=== PATIENT | female | born 1990 | race Caucasian/White ===

== ENCOUNTER 2018-09-14 14:03 | Emergency (ER) | payer MEDICAID ==
[~2018-09-14] VITALS: Ht 170.2 cm; Wt 100.3 kg
[2018-09-14 14:08] VITALS: BP 154/92
--- NOTE | 2018-09-14 14:36 | NUR ---
PATIENT AMBULATED TO BED 3 AT THIS TIME.
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
[2018-09-14 17:20] VITALS: BP 150/80
--- NOTE | 2018-09-14 17:20 | NUR ---
VERBAL ORDER GIVEN BY DR. LINN FOR A RIGHT WRIST VOLAR SPLINT. SPLINT APPLIED USING A ORHTO GLASS NUMBER 4 AND AN NIXON WRAP NUMBER 3. PMSCs INTACT BEFORE AND AFTER APPLICATION.
--- NOTE | 2018-09-14 17:20 | NUR ---
Patient discharged with v/s stable. Written and verbal after care instructions given and explained. Patient alert, oriented and verbalized understanding of instructions. Ambulatory with steady gait. All questions addressed prior to discharge. ID band removed. Patient advised to follow up with PMD. Rx of NORCO AND IBUPROFEN given. Patient educated on indication of medication including possible reaction and side effects. Opportunity to ask questions provided and answered.
== END 2018-09-14 17:20 | disposition home or self-care (01) ==
LOC: MED 14:03
DX: S52.501A Unspecified fracture of the lower end of right radius, initial encounter for closed fracture (principal); Z88.0 Allergy status to penicillin; V43.52XA Car driver injured in collision with other type car in traffic accident, initial encounter; Y93.89 Activity, other specified; Y92.410 Unspecified street and highway as the place of occurrence of the external cause; Y99.8 Other external cause status
CPT/HCPCS: 73060; 73090; 99283

== ENCOUNTER 2019-01-24 19:14 | Emergency (ER) | payer MEDICAID ==
[~2019-01-24] VITALS: Ht 170.2 cm; Wt 88.9 kg
[2019-01-24 19:19] VITALS: BP 135/105
--- NOTE | 2019-01-24 19:26 | NUR ---
PT AMBULATED TO BED 11
--- NOTE | 2019-01-24 19:37 | NUR ---
PATIENT PRESENTS TO ED WITH N/V/D [id number] WITH EPIGASTRIC PAIN, WORSENING THIS WEEK. APPETTIE CHANGES, UNABLE TO KEEP FOOD DOWN, SKIN IS PINK/WARM/DRY; AAOX4 WITH EVEN AND STEADY GAIT; LUNGS CLEAR BL; HR EVEN AND REGULAR; PT DENIES ANY FEVER, CP, SOB, OR COUGH AT THIS TIME; PATIENT STATES PAIN OF 2/10 AT THIS TIME; VSS; PATIENT POSITIONED FOR COMFORT; HOB ELEVATED; BEDRAILS UP X2; BED DOWN. ER MD MADE AWARE OF PT STATUS.
[2019-01-24] MEDS ORDERED: ONDANSETRON 4 MG ODT PO ONE (20:00)
--- NOTE | 2019-01-24 22:42 | NUR ---
Patient discharged with v/s stable. Written and verbal after care instructions given and explained. Patient alert, oriented and verbalized understanding of instructions. Ambulatory with steady gait. All questions addressed prior to discharge. ID band removed. Patient advised to follow up with PMD. Rx of miralax and moineral oil given. Patient educated on indication of medication including possible reaction and side effects. Opportunity to ask questions provided and answered.
[2019-01-24 22:43] VITALS: BP 118/68
== END 2019-01-24 22:41 | disposition home or self-care (01) ==
LOC: MED 19:14
DX: R10.9 Unspecified abdominal pain (principal); R11.10 Vomiting, unspecified; Z88.0 Allergy status to penicillin
CPT/HCPCS: 74022; 81002; 81025; 99283; Q0162

== ENCOUNTER 2019-01-26 15:34 | Emergency (ER) | payer MEDICAID ==
[~2019-01-26] VITALS: Ht 177.8 cm; Wt 87.1 kg
[2019-01-26 15:38] VITALS: BP 132/96
--- NOTE | 2019-01-26 15:44 | NUR ---
PT TO WAIT IN ER LOBBY. VSS. AA0X4. NOT ACTIVELY VOMITING.
--- NOTE | 2019-01-26 20:14 | NUR ---
PT AMBULATED TO BED 11.
--- NOTE | 2019-01-26 20:15 | NUR ---
28 Y/O FEMALE, PRESENTS TO ED C/O EPIGASTRIC BURNING SENSATION. PT STATES SHE HAS BEEN GETTING N/V X3 MONTHS 5 EPISODES A DAY. UNABLE TO TOLERATE FOOD OR FLUID. STATES SHE FEELS BURNING SENSATION WHEN SHE SWALLOWS. PT DENIES ANY SOB. ABDOMEN SOFT AND TENDER TO TOUCH. ACTIVE BS ON ALL QUADRANTS. PT VSS. ERMD AWARE. WILL CONTINUE TO MONITOR.
[2019-01-26] MEDS ORDERED: NACL 0.9% 1,000 ML IV ONE ×2 (21:10→23:40)
[2019-01-26] MEDS ORDERED: FAMOTIDINE 20 MG/2 ML VIAL IVP ONE (21:10)
[2019-01-26] MEDS ORDERED: ONDANSETRON 4 MG/2 ML VIAL IVP ONE (21:10)
--- NOTE | 2019-01-26 21:20 | NUR ---
LABS DRAWN BY RN AT BEDSIDE AND COLLECTED BY PHLEB.
[2019-01-26 22:00] LABS: BASOPHILS # (AUTO) 0.1 K/uL (0.00-0.22); BASOPHILS % (AUTO) 0.6 % (0.0-2.0); EOSINOPHILS % (AUTO) 0.1 % (0.0-4.0); HEMATOCRIT 47.3 % (36-48); HEMOGLOBIN 16.5 g/dL (12.0-16.0); LYMPHOCYTES # (AUTO) 1.2 K/uL (2.5-16.5); LYMPHOCYTES % (AUTO) 10.6 % (20.5-51.1); MEAN CORPUSCULAR HEMOGLOBIN 32 pg (27-31); MEAN CORPUSCULAR HGB CONC 35 g/dL (33-37); MEAN CORPUSCULAR VOLUME 90.8 fL (80-94); MONOCYTES # (AUTO) 0.8 K/uL (0.8-1.0); MONOCYTES % (AUTO) 7.7 % (1.7-9.3); NEUTROPHILS # (AUTO) 8.9 K/uL (1.8-7.7); PLATELET COUNT (AUTO) 411 K/uL (140-450); RED BLOOD CELL COUNT(AUTO) 5.22 MIL/uL (4.20-5.40); RED CELL DISTRIBUTION WIDTH 13.5 % (11.6-13.7)
[2019-01-26 22:18] LABS: ALBUMIN 4.9 g/dL (3.4-5.0); ANION GAP 22.7 (8-16); CARBON DIOXIDE 27.2 mmol/L (21-32); CREATININE 1.6 mg/dL (0.6-1.3)
[2019-01-26 22:23] LABS: POTASSIUM 2.9 mmol/L (3.5-5.1)
--- NOTE | 2019-01-26 22:40 | NUR ---
PT TAKEN TO CT VIA WC.
--- NOTE | 2019-01-26 22:52 | NUR ---
PT RETURNED FROM CT.
[2019-01-26] MEDS ORDERED: POTASSIUM CHLORIDE 20% 40 MEQ/15 ML UDC PO ONE (23:40)
[2019-01-26] MEDS ORDERED: KETOROLAC 15 MG/ML VIAL IVP ONE (23:45)
[2019-01-27 00:49] VITALS: BP 116/80
--- NOTE | 2019-01-27 00:49 | NUR ---
PT DISCHARGED WITH PAPERWORK. RX KEILA REARDON. EDUCATED PT REGARDING MEDICATIONS AND S/E. EDUCATED PT REGARDING D/C DIAGNOSIS. PT VERBALIZED UNDERSTANDING OF TEACHING. TOLD PT TO FOLLOW UP WITH PCP AND WHEN TO RETURN TO ED. PT VSS. ALL QUESTIONS ANSWERED.
[2019-01-27] MEDS ORDERED: ONDANSETRON 4 MG ODT PO ONE (00:50)
[2019-01-28 09:06] LABS: HEPATITIS A ANTIBODY IGM Negative (Negative)
== END 2019-01-27 00:49 | disposition home or self-care (01) ==
LOC: MED 15:34
DX: R11.2 Nausea with vomiting, unspecified (principal); R19.7 Diarrhea, unspecified; Z88.0 Allergy status to penicillin
CPT/HCPCS: 36415; 74177; 80053; 81025; 83690; 85025; 86708; 86709; 96361; 96374; 96375; 99284; J1885; J2405; J3490; J7030; Q0162; Q9967

== ENCOUNTER 2019-02-04 19:53 | Inpatient (IN) | payer MEDICAID ==
[~2019-02-04] VITALS: Ht 170.2 cm; Wt 83.5 kg
[2019-02-04 19:55] VITALS: BP 115/87
--- NOTE | 2019-02-04 20:05 | NUR ---
PT AMBULTAED TO BED 11.
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
[2019-02-04] MEDS ORDERED: ONDANSETRON 4 MG/2 ML VIAL IVP ONE (20:10)
[2019-02-04] MEDS ORDERED: MORPHINE SULFATE 4 MG/ML SYR IVP ONE (20:10)
[2019-02-04] MEDS ORDERED: NACL 0.9% 1,000 ML IV ONE ×3 (20:10→21:45)
[2019-02-04 20:37] LABS: BASOPHILS # (AUTO) 0.1 K/uL (0.00-0.22); LYMPHOCYTES # (AUTO) 2.3 K/uL (2.5-16.5)
[2019-02-04 20:45] LABS: BASOPHILS % (AUTO) 0.8 % (0.0-2.0); EOSINOPHILS # (AUTO) 0.1 K/uL (0-0.4); EOSINOPHILS % (AUTO) 0.3 % (0.0-4.0); HEMATOCRIT 48.7 % (36-48); HEMOGLOBIN 16.7 g/dL (12.0-16.0); LYMPHOCYTES % (AUTO) 13.9 % (20.5-51.1); MEAN CORPUSCULAR HEMOGLOBIN 30 pg (27-31); MEAN CORPUSCULAR HGB CONC 34 g/dL (33-37); MEAN CORPUSCULAR VOLUME 88.7 fL (80-94); MONOCYTES # (AUTO) 1.4 K/uL (0.8-1.0); MONOCYTES % (AUTO) 8.4 % (1.7-9.3); NEUTROPHILS # (AUTO) 12.6 K/uL (1.8-7.7); NEUTROPHILS % (AUTO) 76.6 % (42.2-75.2); PLATELET COUNT (AUTO) 602 K/uL (140-450); RED BLOOD CELL COUNT(AUTO) 5.49 MIL/uL (4.20-5.40); RED CELL DISTRIBUTION WIDTH 13.2 % (11.6-13.7); WHITE BLOOD COUNT (AUTO) 16.5 K/uL (4.8-10.8)
[2019-02-04] MEDS ORDERED: LEVOFLOXACIN 750 MG/D5W PREMIX 150 ML IV ONE (20:55)
[2019-02-04 21:08] LABS: ANION GAP 26.4 (8-16); CARBON DIOXIDE 24.3 mmol/L (21-32); POTASSIUM 2.7 mmol/L (3.5-5.1)
[2019-02-04 21:09] LABS: CREATININE 2.2 mg/dL (0.6-1.3); TOTAL BILIRUBIN 1.3 mg/dL (0.0-1.0)
[2019-02-04 21:10] LABS: ALBUMIN 4.8 g/dL (3.4-5.0)
[2019-02-04] MEDS ORDERED: KCL 20 MEQ/WATER INJ PREMIX 200 ML IV ONE (21:10)
[2019-02-04] MEDS ORDERED: DOCUSATE SODIUM 100 MG GELCAP PO PRN (21:45)
[2019-02-04] MEDS ORDERED: ACETAMINOPHEN 325 MG TAB PO PRN (21:45)
[2019-02-04] MEDS ORDERED: MORPHINE SULFATE 2 MG/ML SYR IVP PRN (21:45)
[2019-02-04] MEDS ORDERED: HYDROcodone/APAP 7.5/325 MG 1 TAB PO PRN (21:45)
[2019-02-04] MEDS ORDERED: DEXT 5% /NACL 0.9% 1,000 ML IV ONE (22:00)
[2019-02-04 22:20] VITALS: BP 119/79
--- NOTE | 2019-02-04 22:20 | NUR ---
Patient will be admitted to care of DR. CEBALLOS. Admited to [facility]. Will go to [id number]. Belongings list completed. BEDSIDE Report GIVEN to LON SOUSA.
--- NOTE | 2019-02-04 22:20 | NUR ---
RECEIVED PT FROM ER NURSE, ARON. PT CAME IN [facility] AND ABLE TO AMBULATE TO [facility] BED. BOY FRIEND AT BEDSIDE. NO S/S OF SOB NOTED ON ROOM AIR. IV SITE ON LAC, 18G, RUNNING LEVAQUIN, ON RAC, 18G, RUNNING POTASSIUM. BOTH SITES ARE INTACT, PATENT, AND ASYMPTOMATIC. CC: N/V, ABD PAIN. DX: ABD PAIN, VOMITING. BOARD UPDATED. BED IN LOW POSITION, CALL LIGHT WITHIN REACH.
[2019-02-04 22:27] LABS: PROTHROMBIN TIME 11.2 secs (10.8-13.4)
[2019-02-04 22:28] LABS: APPEARANCE,URINE CLOUDY (CLEAR); BILIRUBIN,URINE 2+ (NEGATIVE); BLOOD, URINE 1+ (NEGATIVE); COLOR,URINE YELLOW (YELLOW); LEUKOCYTE ESTERASE ,URINE NEGATIVE (NEGATIVE); NITRITE, URINE NEGATIVE (NEGATIVE); UGLUCOSE NEGATIVE (NEGATIVE)
[2019-02-04 23:00] LABS: BARBITURATE, URINE NEG. ng/ml (NEG <=200); BENZODIAZEPINE, URINE NEG. ng/mL (NEG <=200); CANNABINOID, URINE NEG. ng/mL (NEG <=50); COCAINE, URINE NEG. ng/mL (NEG <=300); OPIATE, URINE POS. ng/mL (NEG <=2000); PHENCYCLIDINE SCREEN,URINE NEG. ng/mL (NEG <=25)
[2019-02-04 23:07] LABS: MAGNESIUM 1.8 mg/dL (1.8-2.4); PHOSPHORUS 4.3 mg/dL (2.5-4.9)
[2019-02-04] MEDS: ONDANSETRON 4 MG/2 ML VIAL IM/IVP PRN (23:28)
--- NOTE | 2019-02-04 23:28 | NUR ---
PT C/O N/V, GIVEN ZOFRAN MD ORDERED. PT TOLERATED WELL.
[2019-02-05] VITALS: BP 121/80
--- NOTE | 2019-02-05 | NUR ---
VS CHECKED, WITHIN NORMAL RANGE. WILL CONTINUE TO MONITOR.
[2019-02-05 00:25] LABS: THYROID STIMULATING HORMONE 5.02 uIU/mL (0.34-3.74)
[2019-02-05 00:41] LABS: FREE T4 (FREE THYROXINE) 1.37 ng/dL (0.76-1.46)
--- NOTE | 2019-02-05 02:05 | NUR ---
PT AWAKE, WATCHING TV. DENIES PAIN. BREATHING EVEN AND UNLABORED. BED IN LOW POSITION. CALL LIGHT WITHIN REACH.
[2019-02-05 04:00] VITALS: BP 130/83
[2019-02-05] MEDS: ONDANSETRON 4 MG/2 ML VIAL IM/IVP PRN ×2 (04:06→16:28)
[2019-02-05] MEDS: metroNIDAZOLE 500 MG/NS PREMIX 100 ML IV SCH ×2 (04:07→13:02)
--- NOTE | 2019-02-05 04:07 | NUR ---
GIVEN FLAGYL, PT VOMITING, GIVEN ZOFRAN MD ORDERED. PT TOLERATED WELL.
--- NOTE | 2019-02-05 06:38 | NUR ---
PT LYING IN BED, WATCHING TV. DENIES PAIN, BED IN LOW POSITION, CALL LIGHT WITHIN REACH.
--- NOTE | 2019-02-05 07:10 | NUR ---
RECEIVED BEDSIDE REPORT FROM MECHANICAL TECH NURSE. PATIENT IS AWAKE, ALERT AND ORIENTEDX4. NO SIGNS OF DISTRESS ON RA. AMBULATORY. SKIN IS INTACT. IV ON L AC 20G SL, R AC 20G SL. BOTH CLEAN, DRY AND INTACT. TELE MONITOR IN PLACE. PATIENT IS NPO. PATIENT STATES SHE HAS TO LEAVE TODAY TO SEE HER KIDS. I TOLD HER TO VOICE HER CONCERNS TO THE DRS WHEN THEY DO MORNING ROUNDS. BED IN LOW POSITION. CALL LIGHT WITHIN REACH. WILL CONTINUE TO MONITOR THE PATIENT.
[2019-02-05 07:46] LABS: BASOPHILS % (AUTO) 0.4 % (0.0-2.0); EOSINOPHILS # (AUTO) 0.1 K/uL (0-0.4); EOSINOPHILS % (AUTO) 0.8 % (0.0-4.0); HEMATOCRIT 35.2 % (36-48); LYMPHOCYTES # (AUTO) 1.4 K/uL (2.5-16.5); MEAN CORPUSCULAR HEMOGLOBIN 31 pg (27-31); MEAN CORPUSCULAR HGB CONC 34 g/dL (33-37); MONOCYTES % (AUTO) 12.6 % (1.7-9.3); NEUTROPHILS # (AUTO) 5.3 K/uL (1.8-7.7); NEUTROPHILS % (AUTO) 68.2 % (42.2-75.2); PLATELET COUNT (AUTO) 292 K/uL (140-450); RED BLOOD CELL COUNT(AUTO) 3.91 MIL/uL (4.20-5.40); RED CELL DISTRIBUTION WIDTH 13.2 % (11.6-13.7); WHITE BLOOD COUNT (AUTO) 7.7 K/uL (4.8-10.8)
[2019-02-05 08:00] VITALS: BP 119/83
--- NOTE | 2019-02-05 08:55 | NUR ---
PATIENT REFUSED HEPARIN. PATIENT IS AMBULATORY AND UNDERSTANDS THE RISKS. WILL CONTINUE TO MONITOR THE PATIENT
[2019-02-05] MEDS ORDERED: LEVOFLOXACIN 250 MG/D5 PREMIX 50 ML IV SCH (09:00)
[2019-02-05 09:42] LABS: ANION GAP 14.6 (8-16); CARBON DIOXIDE 27.8 mmol/L (21-32); CREATININE 1.3 mg/dL (0.6-1.3); POTASSIUM 3.4 mmol/L (3.5-5.1)
--- NOTE | 2019-02-05 10:54 | NUR ---
PATIENT STATED DR DOVER SPOKE TO HER IN REGARDS TO NOT GETTING DISCHARGED TODAY. I TOLD HER TRY TO STAY AND FIND A CATERERS HELPER. SHE SAID SHE WILL BUT UNSURE IF SHE CAN STAY LONGER THAN TOMORROW D/T NO CATERERS HELPER. WILL CONTINUE TO MONITOR THE PATIENT.
[2019-02-05 10:55] LABS: MAGNESIUM 1.6 mg/dL (1.8-2.4); PHOSPHORUS 1.8 mg/dL (2.5-4.9)
[2019-02-05 12:00] VITALS: BP 120/88
[2019-02-05] MEDS: MAG SULF 2000 MG/WATER PREMIX 100 ML IV SCH ×2 (12:51→16:35)
--- NOTE | 2019-02-05 12:52 | NUR ---
ADMINISTERED GOLD MG, PATIENT TOLERATING WELL. BED IN LOW POSITION. CALL LIGHT WITHIN REACH. FAMILY AT BEDSIDE
--- NOTE | 2019-02-05 13:17 | NUR ---
ADMINISTERED GOLD ANTIBIOTICS ON R AC LINE. PATIENT TOLERATING WELL. EDUCATED ON SIDE EFFECTS. WILL CONTINUE TO MONITOR THE PATIENT
--- NOTE | 2019-02-05 14:26 | NUR ---
PATIENTS IV IS HURTING. REMOVED. L AC 20, TIP INTACT. PATIENT WANTS ANOTHER LINE SO SHE CAN GET IV MEDS FASTER AND GO HOME. NEW IV LINE L FA 22G INFUSING MG RIDER AT 25. CLEAN, DRY AND INTACT.
--- NOTE | 2019-02-05 14:48 | NUR ---
GOT POTASSIUM PHOSPHATE EARLY FROM ASSEMBLY AND PACKING SUPERVISOR. PATIENTS TIME TO BE GIVEN WAS 1700 BECAUSE PHARMACY THOUGHT PATIENT ONLY HAS ONE LINE, PATIENT HAS TWO LINES AND PATIENT TO BE DISCHARGED TODAY SO POTASSIUM PHOSPHATE GIVEN NOW. WILL CONTINUE TO MONITOR. FAMILY AT BEDSIDE.
[2019-02-05 16:00] VITALS: BP 117/84
--- NOTE | 2019-02-05 16:35 | NUR ---
ADMINISTERED PRN NAUSEA MED AND GOLD MAGNESIUM. PATIENT TOLERATING WELL. BED IN LOW POSITION. WILL CONTINUE TO MONITOR
[2019-02-05] MEDS ORDERED: POTASSIUM PHOSPHATE 15 MM in NACL 0.9% 250 ML IV SCH (17:00)
--- NOTE | 2019-02-05 18:18 | NUR ---
PATIENT SIGNED AMA AND VERBALIZED THE RISK OF GOING AMA, INCLUDING . PATIENT NOT LEAVING TILL ANOTHER 3 HRS WHEN IV MEDS ARE DONE INFUSING
[2019-02-05 18:25] LABS: CHOL/HDL RATIO 14.4 (1-4.5)
--- NOTE | 2019-02-05 19:05 | NUR ---
GAVE BEDSIDE REPORT TO PICKER TENDER HELPER NURSE. PATIENT ENDORSED IN STABLE CONDITION
--- NOTE | 2019-02-05 19:25 | NUR ---
RECEIVED BEDSIDE REPORT FROM AM SHIFT RN REJI, FOR PT'S CONTINUITY OF CARE. PT IS ALERT, AWAKE, ORIENTED X 4, WATCHING TV, FAMILY MEMBER AT BEDSIDE. PT IS ON ROOM AIR, HAS RIGHT AC 20G INFUSING WITH POTASSIUM PHOSPHATE AT 42.5 ML/HR, AND LEFT FA 22G SALINE LOCK. PT IS LEAVING AMA, PAPERS ARE SIGNED, AWAITING FOR IV TO FINISH INFUSING. EXPLAINED TO PT SAPPHIRE STYLUS GRINDER ROUTINE, PT VERBALIZED UNDERSTANDING. BED IS ON LOW POSITION, SIDE RAILS ARE UP, AND CALL LIGHT IS WITHIN REACH. WILL CONTINUE TO MONITOR PT.
--- NOTE | 2019-02-05 20:30 | NUR ---
PT LEAVING AMA. PAPERWORK SIGNED. PT REFUSED TO FINISH IV INFUSION, ASKED TO DC IV. IV D'C, CANNULAS PATENT AND INTACT. VS ARE FF: T 97.2, BP 128/87, O2 SAT 98%, P 77, RR 18, DENIES PAIN. ID BRACELETS TAKEN OFF, PT BELONGINGS GATHERED AND TAKEN BY PT.
[2019-02-06 15:13] LABS: HEPATITIS A ANTIBODY IGM Negative (Negative); HEPATITIS B CORE AB TOTAL Negative (Negative); HEPATITIS B SURFACE ANTIBODY Non Reactive (.); HEPATITIS B SURFACE ANTIGEN Negative (Negative)
[2019-02-06] MEDS ORDERED: LEVOFLOXACIN 250 MG/D5 PREMIX 50 ML IV SCH (21:00)
== END 2019-02-05 20:30 | disposition left against medical advice (07) | DRG 282 ==
LOC: MED 19:53 → MTU 21:44
PROVIDERS: ADMIT General Practice; ATTEND General Practice
DX: K85.90 Acute pancreatitis without necrosis or infection, unspecified (principal); N17.0 Acute kidney failure with tubular necrosis; R65.11 Systemic inflammatory response syndrome (SIRS) of non-infectious origin with acute organ dysfunction; E83.52 Hypercalcemia; E83.42 Hypomagnesemia; E83.39 Other disorders of phosphorus metabolism; D75.1 Secondary polycythemia; E87.8 Other disorders of electrolyte and fluid balance, not elsewhere classified; K76.0 Fatty (change of) liver, not elsewhere classified; E86.0 Dehydration; E87.6 Hypokalemia; E87.1 Hypo-osmolality and hyponatremia; D47.3 Essential (hemorrhagic) thrombocythemia; R73.9 Hyperglycemia, unspecified; Z53.21 Procedure and treatment not carried out due to patient leaving prior to being seen by health care provider; E80.6 Other disorders of bilirubin metabolism; K80.50 Calculus of bile duct without cholangitis or cholecystitis without obstruction; Z88.0 Allergy status to penicillin
CPT/HCPCS: 36415; 71045; 76705; 80048; 80053; 80305; 81001; 81025; 82150; 82550; 83036; 83605; 83690; 83735; 83880; 84100; 84439; 84443; 85025; 85610; 85730; 86704; 86706; 86708; 86709; 86803; 87040; 87081; 87086; 87340; 93005; 96361; 96365; 96368; 96375; 99291; G0482; J1644; J1956; J2270; J2405; J3475; J3480; J3490; J7030; J7042; Q0092

== ENCOUNTER 2019-04-03 17:35 | Emergency (ER) | payer MEDICAID ==
[~2019-04-03] VITALS: Ht 170.2 cm; Wt 74.4 kg
--- NOTE | 2019-04-03 17:44 | NUR ---
PT AMBULATED TO BED 11.
[2019-04-03 17:45] VITALS: BP 123/86
[2019-04-03] MEDS ORDERED: KETOROLAC 60 MG/2 ML VIAL IM ONE (18:20)
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
[2019-04-03 18:45] VITALS: BP 123/86
--- NOTE | 2019-04-03 18:45 | NUR ---
Patient discharged with v/s stable. Written and verbal after care instructions given and explained. Patient alert, oriented and verbalized understanding of instructions. Ambulatory with steady gait. All questions addressed prior to discharge. ID band removed. Patient advised to follow up with PMD. Rx of IBUPROFEN, AND TRAMADOL given. Patient educated on indication of medication including possible reaction and side effects. Opportunity to ask questions provided and answered.
== END 2019-04-03 18:45 | disposition home or self-care (01) ==
LOC: MED 17:35
DX: R20.0 Anesthesia of skin (principal)
CPT/HCPCS: 96372; 99283; J1885

== ENCOUNTER 2019-04-09 16:52 | Emergency (ER) | payer MEDICAID ==
[~2019-04-09] VITALS: Ht 172.7 cm; Wt 74.4 kg
[2019-04-09 16:55] VITALS: BP 134/94
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
[2019-04-09] MEDS ORDERED: KETOROLAC 60 MG/2 ML VIAL IM ONE (17:30)
[2019-04-09 17:56] VITALS: BP 134/94
== END 2019-04-09 17:56 | disposition home or self-care (01) ==
LOC: MED 16:52
DX: R20.2 Paresthesia of skin (principal); Z88.0 Allergy status to penicillin; Z88.8 Allergy status to other drugs, medicaments and biological substances
CPT/HCPCS: 96372; 99283; J1885

== ENCOUNTER 2020-06-03 12:50 | Emergency (ER) | payer MEDICAID ==
[~2020-06-03] VITALS: Ht 170.2 cm; Wt 61.2 kg
[2020-06-03 13:07] VITALS: BP 130/74
--- NOTE | 2020-06-03 13:15 | NUR ---
C/O NOSEBLEED X TODAY. DENIES TRAUMA. PMH: GALL STONE
[2020-06-03] MEDS: PHENYLEPHRINE 0.5% 15 ML BTL NS ONE (13:55)
[2020-06-03 15:41] LABS: BASOPHILS # (AUTO) 0.1 K/uL (0.00-0.22); EOSINOPHILS % (AUTO) 0.4 % (0.0-4.0); LYMPHOCYTES # (AUTO) 1.2 K/uL (2.5-16.5); LYMPHOCYTES % (AUTO) 10.7 % (20.5-51.1); MEAN CORPUSCULAR HEMOGLOBIN 29 pg (27-31); MEAN CORPUSCULAR HGB CONC 32 g/dL (33-37); MEAN CORPUSCULAR VOLUME 89.9 fL (80-94); MONOCYTES # (AUTO) 0.9 K/uL (0.8-1.0); MONOCYTES % (AUTO) 7.8 % (1.7-9.3); NEUTROPHILS # (AUTO) 8.7 K/uL (1.8-7.7); NEUTROPHILS % (AUTO) 80.1 % (42.2-75.2); PLATELET COUNT (AUTO) 74 K/uL (140-450); RED BLOOD CELL COUNT(AUTO) 1.79 MIL/uL (4.20-5.40); RED CELL DISTRIBUTION WIDTH 22.7 % (11.6-13.7); WHITE BLOOD COUNT (AUTO) 10.9 K/uL (4.8-10.8)
[2020-06-03 16:17] LABS: ALBUMIN 2.4 g/dL (3.4-5.0); ANION GAP 12.2 (8-16); CARBON DIOXIDE 27.4 mmol/L (21-32); CREATININE 0.8 mg/dL (0.6-1.3); TOTAL BILIRUBIN 3.9 mg/dL (0.0-1.0)
[2020-06-03 16:37] LABS: POTASSIUM 2.6 mmol/L (3.5-5.1)
[2020-06-03 16:57] LABS: HEMOGLOBIN 5.1 g/dL (12.0-16.0)
[2020-06-03 16:58] LABS: HEMATOCRIT 16.1 % (36-48)
[2020-06-03] MEDS: POTASSIUM CHLORIDE 10 MEQ TABER PO ONE (17:13)
--- NOTE | 2020-06-03 17:19 | NUR ---
Patient does not wish to proceed with medical care recommended by SERGO Bonilla. Patient given information related to possible complications, up to and including , which could occur as a result of leaving hospital at this time. Patient verbalizes understanding of risks involved leaving against medical advice. Patient has signed AMA form.
== END 2020-06-03 17:19 | disposition left against medical advice (07) ==
LOC: MED 12:50
DX: S61.258A Open bite of other finger without damage to nail, initial encounter (principal); R04.0 Epistaxis; D64.9 Anemia, unspecified; E87.6 Hypokalemia; Z88.0 Allergy status to penicillin; W53.01XA Bitten by mouse, initial encounter; Y93.89 Activity, other specified; Y92.89 Other specified places as the place of occurrence of the external cause; Y99.8 Other external cause status
CPT/HCPCS: 30901; 36415; 80053; 85025; 90471; 90715; 93005; 99284

== ENCOUNTER 2020-06-04 16:47 | Emergency (ER) | payer MEDICAID ==
[~2020-06-04] VITALS: Ht 172.7 cm; Wt 58.5 kg
[2020-06-04 16:49] VITALS: BP 152/78
[2020-06-04] MEDS ORDERED: PHENYLEPHRINE 0.5% 15 ML BTL NS ONE (17:10)
[2020-06-04] MEDS ORDERED: TRANEXAMIC ACID 1,000 MG/10 ML VIAL MC ONE (17:10)
--- NOTE | 2020-06-04 17:15 | NUR ---
PT AMBULATED TO BED 11, STEADY GAIT.
--- NOTE | 2020-06-04 17:34 | NUR ---
ERMD AT BEDSIDE FOR PROCEDURE.
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
[2020-06-04 18:45] VITALS: BP 152/78
--- NOTE | 2020-06-04 18:45 | NUR ---
Patient discharged with v/s stable. Written and verbal after care instructions given and explained. Patient verbalized understanding. Ambulatory with steady gait. All questions addressed prior to discharge. Advised to follow up with PMD. PT SIGNED AMA, DECLINED BLOOD TRANSFUSION.
== END 2020-06-04 18:45 | disposition home or self-care (01) ==
LOC: MED 16:47
DX: R04.0 Epistaxis (principal); D64.9 Anemia, unspecified; Z88.0 Allergy status to penicillin
CPT/HCPCS: 99284; J3490